=== PATIENT | male | born 1945 | race African-American/Black ===

== ENCOUNTER 2018-11-11 00:09 | Observation (INO) | payer MEDICARE, OTHER ==
--- NOTE | 2018-11-11 01:36 | RADIOLOGY REPORT (SQ) ---
CT HEAD WITHOUT IV CONTRAST HISTORY: Evaluate for stroke. Altered mental status. COMPARISON: None. TECHNIQUE: CT scan of the brain without IV contrast. This exam was performed according to our departmental dose-optimization program, which includes automated exposure control, adjustment of the mA and/or kV according to patient size and/or use of iterative reconstruction technique. FINDINGS: The ventricles, cisterns, and sulci are unremarkable. No focal white matter lesions are seen. No evidence of acute infarction, intracranial hemorrhage, extra-axial fluid collection, or midline shift. No air-fluid levels are seen in the paranasal sinuses to suggest acute sinusitis. IMPRESSION: No evidence of acute infarction. Please note that MRI is more sensitive for the evaluation of early infarction, and may be performed if there is high clinical concern.
[2018-11-11 02:27] LABS: ABSOLUTE EOSINOPHILS # (AUTO) 0.1 10^3/uL (0.0-0.6); ABSOLUTE LYMPHOCYTES (AUTO) 1.4 10^3/uL (0.5-4.7); ABSOLUTE MONOCYTES (AUTO) 0.3 10^3/uL (0.1-1.4); ABSOLUTE NEUT (AUTO) 2.3 10^3/uL (1.7-8.2); BASOPHILS % (AUTO) 0.4 % (0-2); EOSINOPHILS % (AUTO) 2.2 % (0-6); HEMATOCRIT 42.9 % (37.9-51.0); HEMOGLOBIN 14.2 g/dL (13.5-17.0); LYMPHOCYTES % (AUTO) 33.6 % (13-45); MEAN CORPUSCULAR HEMOGLOBIN 28.6 pg (27.0-33.4); MEAN CORPUSCULAR VOLUME 87 fl (80-97); MONOCYTES % (AUTO) 7.5 % (3-13); PLATELET COUNT 150 10^3/uL (150-450); RED BLOOD COUNT 4.96 10^6/uL (4.35-5.55); RED CELL DISTRIBUTION WIDTH 13.9 % (11.5-14.0); SEGMENTED NEUTROPHILS % (AUTO) 56.3 % (42-78); TOTAL CELLS COUNTED % (AUTO) 100 %
[2018-11-11 02:29] LABS: PROTHROMBIN TIME 15.8 SEC (11.4-15.4)
[2018-11-11 02:33] LABS: ANION GAP 7 (5-19); BLOOD UREA NITROGEN 20 mg/dL (7-20); CALCIUM 9.5 mg/dL (8.4-10.2); CARBON DIOXIDE 29 mmol/L (22-30); CHLORIDE 102 mmol/L (98-107); GLUCOSE 137 mg/dL (75-110); POTASSIUM 5.1 mmol/L (3.6-5.0); SODIUM 137.8 mmol/L (137-145)
[2018-11-11] MEDS ORDERED: MAGNESIUM HYDROXIDE SUSP 30 ML UDCUP PO PRN (03:30)
[2018-11-11] MEDS ORDERED: DOCUSATE SODIUM 100 MG CAPSULE PO PRN (03:30)
[2018-11-11] MEDS ORDERED: ACETAMINOPHEN 325 MG TABLET PO PRN (03:30)
--- NOTE | 2018-11-11 03:40 | ER Document Report ---
ED General - General Chief Complaint: Dizziness Stated Complaint: DIZZY Time Seen by Provider: 11/11/18 02:10 Notes: Patient is a 73-year-old male who presents with complaint of episode of dizziness and difficulty walking. Patient says he first noticed it was walking on the stairs and he started feel very dizzy and ALT as if he was in a fall over. The symptoms continued. He said they would occur whether he was sitting or standing. She did not feel actual weakness in his arms or legs. He said the speech was not slurred. Denies any facial droop. He said he just felt very off balance. He did not feel like the room is spinning. He denies headache. He denies any palpitations. No chest pain. He has never had anything like this h appen before. He does take blood pressure medication. Denies recent fevers or infections. No recent URI symptoms. Patient says he took an aspirin at home and then had his drive him here. He said on the way here he would feel very dizzy if his eyes were open. If he closes eyes his dizziness would improve. Once he got here he still had a little bit of difficulty walking and dizziness however this improved shortly after arriving to the ED. TRAVEL OUTSIDE OF THE [place] IN LAST 30 DAYS: No Past Medical History - Social History Smoking Status: Never Smoker Frequency of alcohol use: None Drug Abuse: None Family History: Reviewed & Not Pertinent Patient has suicidal ideation: No Patient has homicidal ideation: No - Past Medical History Cardiac Medical History: Reports: Hx Hypertension Renal/ Medical History: Denies: Hx Peritoneal Dialysis Review of Systems - Review of Systems Notes: My Normal Review Basic REVIEW OF SYSTEMS: CONSTITUTIONAL : Denies fever, chills, or sweats. Denies recent illness. EENT: Denies eye, ear, throat, or mouth pain or symptoms. Denies nasal or sinus congestion. CARDIOVASCULAR: Denies chest pain. RESPIRATORY: Denies cough, cold, or chest congestion. Denies shortness of breath, difficulty breathing, or wheezing. GASTROINTESTINAL: Denies abdominal pain. Denies nausea, vomiting, or diarrhea. MUSCULOSKELETAL: Denies neck or back pain or joint pain or swelling. SKIN: Denies rash or skin lesions. NEUROLOGICAL: Denies altered mental status or loss of consciousness. Denies headache. Denies weakness or paralysis or loss of use of either side. Some ataxia. His in's. ALL OTHER SYSTEMS REVIEWED AND NEGATIVE. Physical Exam - Vital signs Vitals: Temp Pulse Resp BP Pulse Ox 98.1 F 67 18 182/96 H 97 11/11/18 00:18 11/11/18 00:18 11/11/18 00:18 11/11/18 00:18 11/11/18 00:18 - Notes Notes: General Appearance: Well nourished, alert, cooperative, no acute distress, no obvious discomfort. Vitals: reviewed, See vital signs table. Head: no swelling or tenderness to the head Eyes: PERRL, EOMI, Conjuctiva clear Mouth: No decreasd moisture Throat: No tonsillar inflammation, No airway obstruction, No lymphadenopathy Lungs: No wheezing, No rales, No rhonci, No accessory muscle use, good air exchange bilaterally. Heart: Normal rate, Regular rythm, No murmur, no rub Abdomen: Normal BS, soft, No rigidity, No abdominal tenderness, No guarding, no rebound, no abdominal masses, no organomegaly Extremities: strength 5/5 in all extremities, good pulses in all extremities, no swelling or tenderness in the extremities, no edema. Skin: warm, dry, appropriate color, no rash Neuro: speech clear, oriented x 3, normal affect, responds appropriately to questions. Renal nerves II through XII are intact. Distal sensation intact. Patient moves all extremities without difficulty. Normal gait. No reproduction of dizziness with sitting up or lying down or turning his head side to side. Course - Re-evaluation Re-evalutation: 11/11/18 03:31 Percent clear the patient had a TIA possible dizziness from a vestibular cochlear mechanism. I cannot blame it completely on this difficult mechanism as patient had no actual vertigo type symptoms and that he did not feel a spinning type sensation and it was not positional. Patient's symptoms lasted just over an hour and then eventually resolved on their own. He had no headache. No chest pain. No palpitations. TIA is a possibility. His ABCD 2 score is 4 which is recommendation for admission; however, I would feel comfortable having him follow-up outpatient liaisons can follow-up very closely. Unfortunately the patient recent moved here from [place] and his primary care doctor is in [place] and therefore would be several weeks before he can follow-up. Patient took an aspirin prior to coming to the ER and therefore not given an aspirin here as he is already had it recently. I did speak with the hospitalist, Dr. Zuluaga, who agrees to evaluate the patient for admission. Dictation of this chart was performed using voice recognition software; therefore, there may be some unintended grammatical errors. - Vital Signs Vital signs: Temp Pulse Resp BP Pulse Ox 98.1 F 66 12 152/88 H 99 11/11/18 00:18 11/11/18 02:00 11/11/18 02:04 11/11/18 02:04 11/11/18 02:04 - Laboratory Result Diagrams: 11/11/18 01:49 11/11/18 01:49 Laboratory results interpreted by me: 11/11/18 11/11/18 01:49 01:49 PT 15.8 H Potassium 5.1 H Glucose 137 H Discharge - Discharge Clinical Impression: Ataxia, Dizziness Condition: Good Disposition: ADMITTED OBSERVATION Admitting Provider: Hospitalist Unit Admitted: [facility]
[2018-11-11] MEDS: HEPARIN SOD (PORCINE) 5,000 UNIT/ML 1 ML SYRINGE SUBCUT SCH ×2 (06:22→15:36)
--- NOTE | 2018-11-11 06:53 | PDOC H&P ---
History of Present Illness Admission Date/PCP: 11/11/18 03:43 Patient complains of: Lightheaded History of Present Illness: ANNEMARIE BUSTILLO is a 73 year old male with a past medical history of hypertension. Who presents with a single episode of dizziness and difficulty walking after an uneventful day. He denies focal weakness, confusion, slurred speech, headache, blurred vision, palpitations, chest pain, nausea vomiting or previous episode. Symptoms persisted approximately 1 hour prompting evaluation in the emergency room where he is return to baseline. He has an unremarkable workup with exception to mild hyperkalemia of 5.1 and uncontrolled hypertension the blood pressure in the 170s systolically. Patient denies recent change in medication regiment. Past Medical History Cardiac Medical History: Reports: Hypertension Past Surgical History Past Surgical History: Reports: None Social History Information Source: Patient Lives with: Spouse/Significant other Smoking Status: Never Smoker Frequency of Alcohol Use: None Drugs: None - Advance Directive Resuscitation Status: Full Code Family History Family History: CVA Parental Family History Reviewed: Yes Children Family History Reviewed: Yes Sibling(s) Family History Reviewed.: Yes Medication/Allergy Allergies/Adverse Reactions: No Known Allergies Allergy (Verified 11/11/18 04:25) Review of Systems Constitutional: ABSENT: chills, fever(s), headache(s), weight gain, weight loss Eyes: ABSENT: visual disturbances Ears: ABSENT: hearing changes Cardiovascular: ABSENT: chest pain, dyspnea on exertion, edema, orthropnea, palpitations Respiratory: ABSENT: cough, hemoptysis Gastrointestinal: ABSENT: abdominal pain, constipation, diarrhea, hematemesis, hematochezia, nausea, vomiting Genitourinary: ABSENT: dysuria, hematuria Musculoskeletal: ABSENT: joint swelling Integumentary: ABSENT: rash, wounds Neurological: ABSENT: abnormal gait, abnormal speech, confusion, dizziness, focal weakness, syncope Psychiatric: ABSENT: anxiety, depression, homidical ideation, suicidal ideation Endocrine: ABSENT: cold intolerance, heat intolerance, polydipsia, polyuria Hematologic/Lymphatic: ABSENT: easy bleeding, easy bruising Physical Exam Vital Signs: Temp Pulse Resp BP Pulse Ox 97.5 F 66 16 179/96 H 96 11/11/18 06:41 11/11/18 02:00 11/11/18 06:00 11/11/18 05:02 11/11/18 06:00 Intake & Output 11/09/18 11/10/18 11/11/18 11:59 11:59 11:59 Weight 99.79 kg General appearance: PRESENT: no acute distress, well-developed, well-nourished Head exam: PRESENT: atraumatic, normocephalic Eye exam: PRESENT: conjunctiva pink, EOMI, PERRLA. ABSENT: scleral icterus Ear exam: PRESENT: normal external ear exam Mouth exam: PRESENT: moist, tongue midline Neck exam: ABSENT: carotid bruit, JVD, lymphadenopathy, thyromegaly Respiratory exam: PRESENT: clear to auscultation cesar. ABSENT: rales, rhonchi, wheezes Cardiovascular exam: PRESENT: RRR. ABSENT: diastolic murmur, rubs, systolic murmur Pulses: PRESENT: normal dorsalis pedis pul Vascular exam: PRESENT: normal capillary refill GI/Abdominal exam: PRESENT: normal bowel sounds, soft. ABSENT: distended, guarding, mass, organolmegaly, rebound, tenderness Rectal exam: PRESENT: deferred Extremities exam: PRESENT: full ROM. ABSENT: calf tenderness, clubbing, pedal edema Neurological exam: PRESENT: alert, awake, oriented to person, oriented to place, oriented to time, oriented to situation, CN II-XII grossly intact. ABSENT: motor sensory deficit Psychiatric exam: PRESENT: appropriate affect, normal mood. ABSENT: homicidal ideation, suicidal ideation Skin exam: PRESENT: dry, intact, warm. ABSENT: cyanosis, rash Results Laboratory Results: 11/11/18 01:49 11/11/18 01:49 11/11/18 11/11/18 01:49 01:49 WBC 4.0 RBC 4.96 Hgb 14.2 Hct 42.9 MCV 87 MCH 28.6 MCHC 33.0 RDW 13.9 Plt Count 150 Seg Neutrophils % 56.3 Lymphocytes % 33.6 Monocytes % 7.5 Eosinophils % 2.2 Basophils % 0.4 Absolute Neutrophils 2.3 Absolute Lymphocytes 1.4 Absolute Monocytes 0.3 Absolute Eosinophils 0.1 Absolute Basophils 0.0 Sodium 137.8 Potassium 5.1 H Chloride 102 Carbon Dioxide 29 Anion Gap 7 BUN 20 Creatinine 1.16 Est GFR ( Amer) > 60 Est GFR (Non-Af Amer) > 60 Glucose 137 H Calcium 9.5 Impressions: Head CT 11/11/18 00:00 IMPRESSION: No evidence of acute infarction. Please note that MRI is more sensitive for the evaluation of early infarction, and may be performed if there is high clinical concern. Assessment & Plan - Diagnosis (1) Hypertension Is this a current diagnosis for this admission?: Yes Plan: Hydralazine and outpatient regiment (2) Ataxia Is this a current diagnosis for this admission?: Yes Plan: TIA care set, follow-up MRI head, carotid Doppler, 2D echo. - Time Time Spent: 30 to 50 Minutes
[2018-11-11 07:05] LABS: ABSOLUTE EOSINOPHILS # (AUTO) 0.1 10^3/uL (0.0-0.6); ABSOLUTE LYMPHOCYTES (AUTO) 1.8 10^3/uL (0.5-4.7); ABSOLUTE MONOCYTES (AUTO) 0.3 10^3/uL (0.1-1.4); ABSOLUTE NEUT (AUTO) 2.2 10^3/uL (1.7-8.2); BASOPHILS % (AUTO) 0.9 % (0-2); EOSINOPHILS % (AUTO) 1.7 % (0-6); HEMATOCRIT 44.2 % (37.9-51.0); HEMOGLOBIN 14.8 g/dL (13.5-17.0); LYMPHOCYTES % (AUTO) 39.7 % (13-45); MEAN CORPUSCULAR HEMOGLOBIN 28.7 pg (27.0-33.4); MEAN CORPUSCULAR HGB CONC 33.5 g/dL (32.0-36.0); MEAN CORPUSCULAR VOLUME 86 fl (80-97); MONOCYTES % (AUTO) 7.7 % (3-13); PLATELET COUNT 156 10^3/uL (150-450); RED BLOOD COUNT 5.15 10^6/uL (4.35-5.55); RED CELL DISTRIBUTION WIDTH 13.8 % (11.5-14.0); TOTAL CELLS COUNTED % (AUTO) 100 %; WHITE BLOOD COUNT 4.4 10^3/uL (4.0-10.5)
[2018-11-11 07:37] LABS: ANION GAP 5 (5-19); BLOOD UREA NITROGEN 18 mg/dL (7-20); CALCIUM 9.5 mg/dL (8.4-10.2); CARBON DIOXIDE 31 mmol/L (22-30); CHLORIDE 103 mmol/L (98-107); GLUCOSE 103 mg/dL (75-110); POTASSIUM 4.7 mmol/L (3.6-5.0); SODIUM 139.1 mmol/L (137-145)
--- NOTE | 2018-11-11 09:21 | EKG REPORT ---
SEVERITY:- OTHERWISE NORMAL ECG - SINUS OR ECTOPIC ATRIAL RHYTHM VENTRICULAR PREMATURE COMPLEX : Confirmed by: Elliot Sainz 11-Nov-2018 09:21:04
[2018-11-11] MEDS ORDERED: ASPIRIN 81 MG TABLET, ENT COATED PO SCH (10:00)
--- NOTE | 2018-11-11 13:14 | RADIOLOGY REPORT (SQ) ---
EXAM DESCRIPTION: MRI HEAD WITHOUT COMPLETED DATE/TIME: 11/11/2018 11:57 am REASON FOR STUDY: tia dizziness, lightheaded, difficulty walking COMPARISON: CT brain 11/11/2018 TECHNIQUE: Multiplanar imaging includes non-contrasted T1, T2, FLAIR, and diffusion with ADC map seq uences. Images stored on PACS. LIMITATIONS: None. FINDINGS: ANATOMY: No development anomalies. Normal vascular flow voids. Pituitary fossa normal. CSF SPACES: Normal in size and contour. No hemorrhage. CEREBRUM: Sulci and gyri normal in size and contour. Normal white matter signal on FLAIR imaging. No evidence of hemorrhage, mass, or extraaxial fluid collection. POSTERIOR FOSSA: No signal alteration. No hemorrhage. No edema, masses or mass effect. Internal leticia tory canals, cerebello-pontine angles, mastoids normal. DIFFUSION IMAGING: Negative for acute or sub-acute infarction. ORBITS: No masses. Globes normal. PARANASAL SINUSES: No fluid levels. Mucosa normal. OTHER: No other significant finding. IMPRESSION: NORMAL MRI OF THE BRAIN WITHOUT INTRAVENOUS GADOLINIUM CONTRAST. EVIDENCE OF ACUTE STROKE: NO. TECHNICAL DOCUMENTATION: JOB ID: [id number] [employer]- All Rights Reserved Reading location - IP/workstation name: [email or web address]
--- NOTE | 2018-11-11 13:37 | RADIOLOGY REPORT (SQ) ---
EXAM DESCRIPTION: CAROTID DOPPLER COMPLETED DATE/TIME: 11/11/2018 1:18 pm REASON FOR STUDY: tia dizziness, lightheadedness, off balance, difficulty walking COMPARISON: CT brain 11/11/2018 MRI brain 11/11/2018 TECHNIQUE: Grayscale ultrasound, Doppler velocity and spectra, and color Doppler images acquired of the extra-cranial carotid and vertebral arteries. Images stored on PACS. LIMITATIONS: None. FINDINGS: RIGHT CAROTID CCA Velocities: Within normal limits. Right common carotid artery peak systolic velocity 0.7 m/sec. Diffuse intimal thickening. ICA Velocities Peak systolic 0.36 m/s. End diastolic 0.13 m/s. Proximal ICA/CCA peak systolic ratio normal. Spectra normal. Mild mixed calcific and noncalcific plaque at the right carotid bifurcation without flow significant stenosis proximal right ICA. LEFT CAROTID CCA Velocities: Within normal limits. Left common carotid artery peak systolic velocity 0.69 m/sec. Diffuse intimal thickening. ICA Velocities Peak systolic 0.45 m/s. End diastolic 0.15 m/s. Proximal ICA/CCA peak systolic ratio 2.0. Spectra normal. Mild mixed calcific and noncalcific plaque without flow significant stenosis proxima l left ICA. . VERTEBRAL ARTERIES: Antegrade flow. Normal waveforms. SUBCLAVIAN ARTERIES: Not evaluated. OTHER: No other significant finding. IMPRESSION: NO HEMODYNAMICALLY SIGNIFICANT STENOSIS. COMMENT: Quality ID #[id number]: Velocity criteria are extrapolated from the diameter data as defined by t he Society of Radiologists in Ultrasound Consensus Conference. Radiology 2003: 229; 340-346. TECHNICAL DOCUMENTATION: JOB ID: [id number] [employer]- All Rights Reserved Reading location - IP/workstation name: [email or web address]
[2018-11-11 15:37] VITALS: BP 149/82
--- NOTE | 2018-11-11 16:19 | PDOC DISCHARGE SUMMARY ---
General - Admit/Disc Date/PCP Admission Date/Primary Care Provider: 11/11/18 03:43 Discharge Date: 11/11/18 - Additional Information Resuscitation Status: Full Code Home Medications: Lisinopril [Prinivil 10 mg Tablet] 10 mg PO DAILY 11/11/18 History of Present Illness History of Present Illness: ANNEMARIE BUSTILLO is a 73 year old male Hospital Course Hospital Course: Patient was admitted earlier on today. MRI, Echo and Carotid doppler were done. Patient decided not to wait for his full work up and results and decided to sign out AMA Physical Exam Vital Signs: Temp Pulse Resp BP Pulse Ox 97.5 F 70 15 149/82 H 99 11/11/18 06:41 11/11/18 14:00 11/11/18 15:01 11/11/18 15:01 11/11/18 15:01 Intake & Output 11/10/18 11/11/18 11/12/18 06:59 06:59 06:59 Weight 99.79 kg General appearance: PRESENT: no acute distress, well-developed, well-nourished Head exam: PRESENT: atraumatic, normocephalic Eye exam: PRESENT: conjunctiva pink, EOMI, PERRLA. ABSENT: scleral icterus Ear exam: PRESENT: normal external ear exam Mouth exam: PRESENT: moist, tongue midline Neck exam: ABSENT: carotid bruit, JVD, lymphadenopathy, thyromegaly Respiratory exam: PRESENT: clear to auscultation cesar. ABSENT: rales, rhonchi, wheezes Cardiovascular exam: PRESENT: RRR. ABSENT: diastolic murmur, rubs, systolic murmur Pulses: PRESENT: normal dorsalis pedis pul Vascular exam: PRESENT: normal capillary refill GI/Abdominal exam: PRESENT: normal bowel sounds, soft. ABSENT: distended, guarding, mass, organolmegaly, rebound, tenderness Rectal exam: PRESENT: deferred Extremities exam: PRESENT: full ROM. ABSENT: calf tenderness, clubbing, pedal edema Neurological exam: PRESENT: alert, awake, oriented to person, oriented to place, oriented to time, oriented to situation, CN II-XII grossly intact. ABSENT: motor sensory deficit Psychiatric exam: PRESENT: appropriate affect, normal mood. ABSENT: homicidal ideation, suicidal ideation Skin exam: PRESENT: dry, intact, warm. ABSENT: cyanosis, rash Results Laboratory Results: 11/11/18 06:53 11/11/18 06:53 11/11/18 11/11/18 11/11/18 01:49 01:49 06:53 WBC 4.0 4.4 RBC 4.96 5.15 Hgb 14.2 14.8 Hct 42.9 44.2 MCV 87 86 MCH 28.6 28.7 MCHC 33.0 33.5 RDW 13.9 13.8 Plt Count 150 156 Seg Neutrophils % 56.3 50.0 Lymphocytes % 33.6 39.7 Monocytes % 7.5 7.7 Eosinophils % 2.2 1.7 Basophils % 0.4 0.9 Absolute Neutrophils 2.3 2.2 Absolute Lymphocytes 1.4 1.8 Absolute Monocytes 0.3 0.3 Absolute Eosinophils 0.1 0.1 Absolute Basophils 0.0 0.0 Sodium 137.8 Potassium 5.1 H Chloride 102 Carbon Dioxide 29 Anion Gap 7 BUN 20 Creatinine 1.16 Est GFR ( Amer) > 60 Est GFR (Non-Af Amer) > 60 Glucose 137 H Calcium 9.5 11/11/18 06:53 WBC RBC Hgb Hct MCV MCH MCHC RDW Plt Count Seg Neutrophils % Lymphocytes % Monocytes % Eosinophils % Basophils % Absolute Neutrophils Absolute Lymphocytes Absolute Monocytes Absolute Eosinophils Absolute Basophils Sodium 139.1 Potassium 4.7 Chloride 103 Carbon Dioxide 31 H Anion Gap 5 BUN 18 Creatinine 0.99 Est GFR ( Amer) > 60 Est GFR (Non-Af Amer) > 60 Glucose 103 Calcium 9.5 Impressions: Head CT 11/11/18 00:00 IMPRESSION: No evidence of acute infarction. Please note that MRI is more sensitive for the evaluation of early infarction, and may be performed if there is high clinical concern. Carotid Doppler Study 11/11/18 03:32 IMPRESSION: NO HEMODYNAMICALLY SIGNIFICANT STENOSIS. Head MRI 11/11/18 03:32 IMPRESSION: NORMAL MRI OF THE BRAIN WITHOUT INTRAVENOUS GADOLINIUM CONTRAST. EVIDENCE OF ACUTE STROKE: NO. Qualifiers - * PATIENT BEING DISCHARGED WITH ANY OF THE FOLLOWING DIAGNOSIS: No
[2018-11-11] MEDS ORDERED: ATORVASTATIN CALCIUM 80 MG TABLET PO SCH (22:00)
--- NOTE | 2018-11-11 23:05 | EKG REPORT ---
SEVERITY:- OTHERWISE NORMAL ECG - SINUS OR ECTOPIC ATRIAL RHYTHM BORDERLINE LEFT AXIS DEVIATION : Confirmed by: Elliot Sainz 11-Nov-2018 23:04:32
--- NOTE | 2018-11-11 23:28 | XCELERA REPORT ---
[address] [address] Transthoracic Echocardiogram Report Name: ANNEMARIE BUSTILLO Age: 73 yrs Gender: Male : 1945 Patient Status: Inpatient Patient [address] Study Date: 11/11/2018 10:49 AM Procedure: A complete two-dimensional transthoracic echocardiogram was performed (2D, M-mode, spectral and color flow Doppler). The study was technically adequate with some images being suboptimal in quality. Reason For Study: tia Ordering Physician: JENNY RICHARDS Performed By: Lisa Segovia Interpretation Summary The left ventricular ejection fraction is normal. The left ventricle is grossly normal size. There is mild to moderate concentric left ventricular hypertrophy. Wall motion cannot be accurately commented on, but no definite regional wall motion abnormalities noted. Doppler measurements suggest pseudonormalized left ventricular relaxation, which is associated with grade II/IV or mild to moderate diastolic dysfunction Borderline right ventricular enlargement. The right ventricular systolic function is normal. The left atrium is mildly dilated. The right atrium is borderline dilated. There is a mild amount of mitral regurgitation There is no mitral valve stenosis. There is a mild to moderate amount of aortic regurgitation There is no aortic valve stenosis There is a trace or physiologic amount of tricuspid regurgitation Tricuspid regurgitation jet envelope not well defined to measure RV systolic pressure accurately. The aortic root is not well visualized but is probably normal size. The inferior vena cava appeared normal and decreased > 50% with respiration (RAP 5-10 mmHg) Minimal pericardial effusion. MMode/2D Measurements & Calculations RVDd: 3.3 cm LVIDd: 4.7 cm FS: 30.9 % Ao root diam: 3.5 cm IVSd: 1.1 cm LVIDs: 3.3 cm EDV(Teich): 104.3 ml Ao root area: 9.6 cm2 LVPWd: 1.4 cm ESV(Teich): 43.3 ml EF(Teich): 58.4 % Doppler Measurements & Calculations MV E max corky: MV dec slope: Ao V2 max: AI max corky: 89.4 cm/sec 110.8 cm/sec 393.0 cm/sec MV A max corky: 421.5 cm/sec2 Ao max P.9 mmHgAI max P.8 mmHg 84.1 cm/sec MV dec time: AI dec slope: MV E/A: 1.1 0.21 sec 136.7 cm/sec2 AI P1/2t: 841.7 msec LV V1 max PG: PA V2 max: PI end-d corky: 4.2 mmHg 91.9 cm/sec 118.9 cm/sec LV V1 max: PA max P.4 mmHg 101.9 cm/sec Left Ventricle The left ventricle is grossly normal size. There is mild to moderate concentric left ventricular hypertrophy. The left ventricular ejection fraction is normal. Doppler measurements suggest pseudonormalized left ventricular relaxation, which is associated with grade II/IV or mild to moderate diastolic dysfunction. Wall motion cannot be accurately commented on, but no definite regional wall motion abnormalities noted. Right Ventricle Borderline right ventricular enlargement. There is normal right ventricular wall thickness. The right ventricular systolic function is normal. Atria The right atrium is borderline dilated. The left atrium is mildly dilated. Interarterial septum not well visualized and not well dopplered. Cannot comment on ASD/PFO presence. Mitral Valve The mitral valve is grossly normal. There is no mitral valve stenosis. There is a mild amount of mitral regurgitation. Aortic Valve The aortic valve is grossly normal. There is no aortic valve stenosis. There is a mild to moderate amount of aortic regurgitation. Tricuspid Valve The tricuspid valve is not well visualized, but is grossly normal. There is no tricuspid stenosis. There is a trace or physiologic amount of tricuspid regurgitation. Tricuspid regurgitation jet envelope not well defined to measure RV systolic pressure accurately. Pulmonic Valve The pulmonic valve is not well visualized. Great Vessels The aortic root is not well visualized but is probably normal size. The inferior vena cava appeared normal and decreased > 50% with respiration (RAP 5-10 mmHg). Effusions Minimal pericardial effusion. : JENNY RICHARDS > Elliot Sainz
== END 2018-11-11 15:39 | disposition left against medical advice (07) ==
LOC: ER 00:09 → EH 03:43
PROVIDERS: ADMIT Internal Medicine; ATTEND Internal Medicine
DX: I10 Essential (primary) hypertension (principal); R27.0 Ataxia, unspecified; E87.5 Hyperkalemia; R42 Dizziness and giddiness; Z53.21 Procedure and treatment not carried out due to patient leaving prior to being seen by health care provider; Z82.3 Family history of stroke
CPT/HCPCS: 93005; 36415; 85025; 85610; 85730; 80048; 93306; 93880; 70551; 70450; 93010; A9270; G0378